=== PATIENT | female | born 1965 | race Caucasian/White ===

== ENCOUNTER → 2017-05-29 | Day surgery (SDC) | payer OTHER | END | disposition home or self-care (01) | LOC: ADM 05-27 15:15 → AMB-ENDOS 07:58 | DX: K59.01 Slow transit constipation (principal); K64.8 Other hemorrhoids ==

== ENCOUNTER 2022-04-09 09:50 | Day surgery (SDC) | payer OTHER | END 2022-04-09 17:00 | disposition home or self-care (01) | LOC: AMB-ENDOS 09:50 | PROVIDERS: ATTEND Colon & Rectal Surgery | DX: K62.5 Hemorrhage of anus and rectum (principal); K63.5 Polyp of colon; K64.8 Other hemorrhoids ==

== ENCOUNTER 2024-08-05 07:07 | Outpatient (CLI) | payer OTHER | END 2024-08-05 07:09 | disposition home or self-care (01) | LOC: NUCLEAR 07:07 | DX: M80.08XA Age-related osteoporosis with current pathological fracture, vertebra(e), initial encounter for fracture (principal) | CPT/HCPCS: 78306; A9503 ==

== ENCOUNTER 2024-08-10 10:40 | Outpatient (CLI) | payer OTHER | END 2024-08-10 10:48 | disposition home or self-care (01) | LOC: MRI 10:40 | DX: M54.16 Radiculopathy, lumbar region (principal) | CPT/HCPCS: 72148 ==